=== PATIENT | male | born 1980 | race Caucasian/White ===

== ENCOUNTER 2018-09-08 07:38 | Emergency (ER) | payer OTHER ==
--- NOTE | 2018-09-08 08:06 | PHYS DOC ---
Adult General Chief Complaint Chief Complaint: right testicle pain HPI HPI 37-year-old male presents with right testicular pain. The patient was moving the family trailer yesterday when he began to have pain. This started around 3 PM yesterday. The pain has intensified and is now severe. It is difficult to walk due to the pain. He has some mild nausea. There is not significant swelling. He denies trauma. Denies fever or chills. The patient had a few episodes of testicular pain in the past as a teenager, but never saw a physician for this. The episodes went away on their own. Review of Systems Review of Systems Constitutional: Denies fever or chills [] Eyes: Denies change in visual acuity, redness, or eye pain [] HENT: Denies nasal congestion or sore throat [] Respiratory: Denies cough or shortness of breath [] Cardiovascular: No additional information not addressed in HPI [] GI: Denies abdominal pain, nausea, vomiting, bloody stools or diarrhea [] : Right testicle pain[] Musculoskeletal: Denies back pain or joint pain [] Integument: Denies rash or skin lesions [] Neurologic: Denies headache, focal weakness or sensory changes [] Endocrine: Denies polyuria or polydipsia [] All other systems were reviewed and found to be within normal limits, except as documented in this note. Physical Exam Physical Exam Constitutional: Well developed, well nourished, mild acute distress, non-toxic appearance. [] HENT: Normocephalic, atraumatic, bilateral external ears normal, oropharynx m oist, no oral exudates, nose normal. [] Eyes: PERRLA, EOMI, conjunctiva normal, no discharge. [] Neck: Normal range of motion, no tenderness, supple, no stridor. [] Cardiovascular:Heart rate regular rhythm, no murmur [] Lungs & Thorax: Bilateral breath sounds clear to auscultation [] Abdomen: Bowel sounds normal, soft, no tenderness, no masses, no pulsatile masses. [] Skin: Warm, dry, no erythema, no rash. [] Back: No tenderness, no CVA tenderness. [] Extremities: No tenderness, no cyanosis, no clubbing, ROM intact, no edema. [] Neurologic: Alert and oriented X 3, normal motor function, normal sensory function, no focal deficits noted. [] Psychologic: Affect normal, judgement normal, mood normal. : circumcised, normal skin appearance, bilateral descended testicles, no obvious swelling or skin changes, tenderness with palpation of right testicle. [] EKG EKG [] Radiology/Procedures Radiology/Procedures [] Impressions: Testicular and scrotal duplex sonogram Clinical indications: Right testicular pain which is severe and started at 3:00 PM yesterday. FINDINGS: Duplex sonography of the scrotum and both testicles was performed including grayscale evaluation and color flow and waveform spectral analysis. The longitudinal and AP and transverse dimensions of the right testicle are 5.6 cm and 2.8 cm and 4.0 cm respectively. The longitudinal and AP and transverse dimensions of the left testicle are 4.9 cm and 3.0 cm and 3.6 cm respectively. No testicular mass is seen on either side. No testicular torsion is seen. There is hyperemia of the right testicle which may be seen with orchitis. The head of epididymis on the right side is enlarged measuring 17 mm. This is due to a 13 mm cyst. Venous flow is seen within the posterior aspect of the cyst. Therefore, this may represent a varix. Increased flow is seen within the right epididymis. Small amount of fluid is seen around both testicles. Small varicocele is seen on the left side. IMPRESSION: Right-sided epididymo-orchitis. Electronically signed by: Tayler Gamez MD (09/08/2018 9:27 AM) [facility] DICTATED AND SIGNED BY: TAYLER GAMEZ MD DATE: 09/08/18926 CC: TATIANA BRUNO DO; PCP,NO ~ Course & Med Decision Making Course & Med Decision Making Pertinent Labs and Imaging studies reviewed. (See chart for details) The patient appears to have epididymitis. I will treat him a 250 mg of Rocephin IM and 10 days of levofloxacin by mouth at home. His labs and urinalysis are unremarkable. He is stable for discharge at this time. [] Dragon Disclaimer Dragon Disclaimer This electronic medical record was generated, in whole or in part, using a voice recognition dictation system. Departure Departure: Impression: Primary Impression: Epididymitis Disposition: HOME, SELF-CARE Condition: STABLE Referrals: PCPTHANH (PCP) Patient Instructions: Epididymitis Scripts Levofloxacin (LEVOFLOXACIN) 500 Mg Tablet 1 TAB PO DAILY for epididymitis, #10 TAB Prov: TATIANA BRUNO DO 09/08/18 TATIANA BRUNO DO Sep 08, 2018 08:06
[2018-09-08] MEDS: IV NORMAL SALINE 1,000ML 1,000 ML IV ONE (08:11)
[2018-09-08] MEDS: ONDANSETRON PF 4 MG/2 ML VIAL. IV ONE (08:13)
[2018-09-08] MEDS: HYDROmorphone PF 1 MG/ML DISP.SYRIN IV ONE (08:15)
[2018-09-08 08:26] LABS: BASO % 1 % (0-3); EOS % 0 % (0-3); HEMATOCRIT 42.1 % (39.0-53.0); HEMOGLOBIN 14.5 g/dL (13.0-17.5); LYMPH # 1.7 x10^3/uL (1.0-4.8); LYMPH % 19 % (24-48); MEAN CORPUSCULAR HEMOGLOBIN 31 pg (25-35); MEAN CORPUSCULAR HGB CONC 35 g/dL (31-37); MEAN CORPUSCULAR VOLUME 89 fL (79-100); MONO # 0.8 x10^3/uL (0.0-1.1); MONO % 10 % (0-9); NEUT # 6.2 x10^3uL (1.8-7.7); NEUT % 71 % (31-73); PLATELET COUNT 207 x10^3/uL (140-400); RED BLOOD COUNT 4.75 x10^6/uL (4.30-5.70); RED CELL DISTRIBUTION WIDTH 13.2 % (11.5-14.5); WHITE BLOOD COUNT 8.8 x10^3/uL (4.0-11.0)
[2018-09-08 08:34] LABS: ALBUMIN 4.1 g/dL (3.4-5.0); ALBUMIN/GLOBULIN RATIO 1.1 (1.0-1.7); CALCIUM 9.4 mg/dL (8.5-10.1); GFR 84.5; POTASSIUM 4.1 mmol/L (3.5-5.1); TOTAL BILIRUBIN 0.6 mg/dL (0.2-1.0)
--- NOTE | 2018-09-08 09:30 | RAD ---
Testicular and scrotal duplex sonogram Clinical indications: Right testicular pain which is severe and started at 3:00 PM yesterday. FINDINGS: Duplex sonography of the scrotum and both testicles was performed including grayscale evaluation and color flow and waveform spectral analysis. The longitudinal and AP and transverse dimensions of the right testicle are 5.6 cm and 2.8 cm and 4.0 cm respectively. The longitudinal and AP and transverse dimensions of the left testicle are 4.9 cm and 3.0 cm and 3.6 cm respectively. No testicular mass is seen on either side. No testicular torsion is seen. There is hyperemia of the right testicle which may be seen with orchitis. The head of epididymis on the right side is enlarged measuring 17 mm. This is due to a 13 mm cyst. Venous flow is seen within the posterior aspect of the cyst. Therefore, this may represent a varix. Increased flow is seen within the right epididymis. Small amount of fluid is seen around both testicles. Small varicocele is seen on the left side. IMPRESSION: Right-sided epididymo-orchitis. Electronically signed by: Lev Gamez MD (09/08/2018 9:27 AM) [place] [id number]
[2018-09-08] MEDS ORDERED: LEVO500T8 PO (09:55)
[2018-09-08] MEDS ORDERED: HYDR-3165 PO (09:58)
[2018-09-08] MEDS ORDERED: LIDOCAINE 1% Multi-Dose 20 ML VIAL. ONE (10:01)
[2018-09-08] MEDS: HYDROcodone/APAP 5/325MG 1 TAB TABLET PO ONE (10:05)
[2018-09-08] MEDS: cefTRIAXone IM 250 MG VIAL IM ONE (10:06)
[2018-09-08 10:15] VITALS: BP 119/60
== END 2018-09-08 10:17 | disposition home or self-care (01) ==
LOC: ER 07:38
DX: N45.1 Epididymitis (principal); N45.3 Epididymo-orchitis
CPT/HCPCS: 36415; 76870; 80053; 85025; 96372; 96374; 96375; 99285; J0696; J1170; J2405; J7030